=== PATIENT | female | born 2005 | race Caucasian/White ===

== ENCOUNTER 2024-01-06 16:54 | Emergency (ER) | payer BC ==
[2024-01-06] MEDS: Sodium Chloride 0.9% 2.5 ML Syringe FLUSH PRN (17:28)
[2024-01-06] MEDS: Ondansetron 4 MG/2 ML SDV IVPUSH ONE (17:28)
[2024-01-06] MEDS: Sodium Chloride 0.9% 1,000 ML IV ONE (17:28)
[2024-01-06] MEDS: Sodium Chloride 0.9% 10 ML Syringe FLUSH PRN (17:28)
[2024-01-06 17:30] LABS: BASOPHILS ABSOLUTE AUTO 0.03 K/uL (0.00-0.30); BASOPHILS PERCENT AUTO 0.2 % (0.0-1.0); EOSINOPHILS ABSOLUTE AUTO 0.01 K/uL (0.00-0.70); EOSINOPHILS PERCENT AUTO 0.1 % (0.0-5.0); HEMOGLOBIN 14.3 g/dL (12.0-16.0); IMMATURE GRAN ABSOLUTE AUTO 0.05 K/uL (0.00-0.05); IMMATURE GRAN PERCENT AUTO 0.4 % (0.0-0.4); LYMPHOCYTES ABSOLUTE AUTO 1.97 K/uL (2.00-8.80); LYMPHOCYTES PERCENT AUTO 14.8 % (50.0-65.0); MEAN CORPUSCULAR HEMOGLOBIN 30.8 pg (28.0-32.0); MEAN CORPUSCULAR HGB CONC 35.8 g/dL (32.0-36.0); MEAN CORPUSCULAR VOLUME 86.2 fL (83.0-99.0); MEAN PLATELET VOLUME 9.7 fL (9.4-12.3); MONOCYTES ABSOLUTE AUTO 0.55 K/uL (0.10-1.40); MONOCYTES PERCENT AUTO 4.1 % (2.0-10.0); NEUTROPHILS ABSOLUTE AUTO 10.69 K/uL (1.50-8.50); NEUTROPHILS PERCENT AUTO 80.4 % (35.0-45.0); PLATELET COUNT,PLT 372 K/uL (150-400); RED BLOOD CELL COUNT 4.64 M/uL (4.10-5.30)
[2024-01-06 18:23] LABS: A/G RATIO 1.1 (0.9-1.6); ALBUMIN 4.3 g/dL (3.4-5.0); BILIRUBIN TOTAL 0.7 mg/dL (0.2-1.0); CALCIUM 9.5 mg/dL (8.5-10.1); CARBON DIOXIDE,CO2 19.6 mmol/L (21.0-32.0); CREATININE 0.9 mg/dL (0.6-1.0); EST CRCL DRUG DOSING (CG) 83.17 mL/min; MAGNESIUM 1.8 mg/dL (1.8-2.4); POTASSIUM,K 3.7 mmol/L (3.5-5.1); PROTEIN TOTAL,TP 8.3 g/dL (6.4-8.2)
[2024-01-06 18:56] LABS: COLOR,URINE YELLOW; GLUCOSE,URINE NEGATIVE (NEGATIVE); KETONES,URINE >=80 mg/dL (NEGATIVE); LEUKOCYTE ESTERASE,URINE NEGATIVE (NEGATIVE); NITRITE,URINE NEGATIVE (NEGATIVE); OCCULT BLOOD,URINE NEGATIVE (NEGATIVE); PROTEIN,URINE TRACE mg/dL (NEGATIVE)
[2024-01-06 19:04] LABS: APPEARANCE,URINE SLT CLOUDY; BILIRUBIN,URINE SMALL (NEGATIVE); EPITHELIAL CELLS,URINE MANY (NONE-FEW); RBC,URINE 0-1 (0-2/HPF)
[2024-01-06 19:05] LABS: AMORPHOUS SEDIMENT,URINE FEW (NEGATIVE); BACTERIA,URINE 1+ (NEGATIVE); MUCUS,URINE FEW (NONE-MOD)
== END 2024-01-06 19:20 | disposition home or self-care (01) ==
LOC: MW.ED 16:54
DX: O21.9 Vomiting of pregnancy, unspecified (principal); Z79.51 Long term (current) use of inhaled steroids; Z79.899 Other long term (current) drug therapy; Z3A.00 Weeks of gestation of pregnancy not specified
CPT/HCPCS: 36415; 80053; 81001; 83690; 83735; 84702; 85025; 96361; 96374; 99284; J2405; J3490; J7030

== ENCOUNTER → 2024-06-15 | Emergency (ER) | payer BC ==
[~2024-06-15] MED LIST: Sodium Chloride 0.9% 10 ML Syringe FLUSH PRN
[2024-06-15] MEDS: Sodium Chloride 0.9% 1,000 ML IV ONE (04:03)
[2024-06-15] MEDS: diphenhydrAMINE 50 MG/ML SDV IVPUSH ONE (04:04)
[2024-06-15 04:05] LABS: BASOPHILS ABSOLUTE AUTO 0.02 K/uL (0.00-0.30); BASOPHILS PERCENT AUTO 0.2 % (0.0-1.0); EOSINOPHILS ABSOLUTE AUTO 0.03 K/uL (0.00-0.70); EOSINOPHILS PERCENT AUTO 0.2 % (0.0-5.0); HEMATOCRIT 30.5 % (37.0-47.0); HEMOGLOBIN 10.7 g/dL (12.0-16.0); IMMATURE GRAN ABSOLUTE AUTO 0.05 K/uL (0.00-0.05); IMMATURE GRAN PERCENT AUTO 0.4 % (0.0-0.4); LYMPHOCYTES ABSOLUTE AUTO 0.28 K/uL (2.00-8.80); LYMPHOCYTES PERCENT AUTO 2.1 % (50.0-65.0); MEAN CORPUSCULAR HEMOGLOBIN 31.7 pg (28.0-32.0); MEAN CORPUSCULAR HGB CONC 35.1 g/dL (32.0-36.0); MEAN CORPUSCULAR VOLUME 90.2 fL (83.0-99.0); MONOCYTES ABSOLUTE AUTO 0.71 K/uL (0.10-1.40); MONOCYTES PERCENT AUTO 5.4 % (2.0-10.0); NEUTROPHILS ABSOLUTE AUTO 11.99 K/uL (1.50-8.50); NEUTROPHILS PERCENT AUTO 91.7 % (35.0-45.0); PLATELET COUNT,PLT 292 K/uL (150-400); RED BLOOD CELL COUNT 3.38 M/uL (4.10-5.30); WHITE BLOOD CELL COUNT,WBC 13.08 K/uL (4.5-13.5)
[2024-06-15] MEDS: Acetaminophen 500 MG Tab PO ONE (04:06)
[2024-06-15 04:17] LABS: APPEARANCE,URINE SLT CLOUDY; BILIRUBIN,URINE NEGATIVE (NEGATIVE); COLOR,URINE YELLOW; GLUCOSE,URINE NEGATIVE (NEGATIVE); KETONES,URINE 40 mg/dL (NEGATIVE); LEUKOCYTE ESTERASE,URINE NEGATIVE (NEGATIVE); NITRITE,URINE NEGATIVE (NEGATIVE); OCCULT BLOOD,URINE NEGATIVE (NEGATIVE); PROTEIN,URINE NEGATIVE (NEGATIVE); UROBILINOGEN,URINE 0.2 EU/dL (<2.0)
[2024-06-15 04:28] LABS: A/G RATIO 0.8 (0.9-1.6); ALBUMIN 3.2 g/dL (3.4-5.0); BILIRUBIN TOTAL 0.5 mg/dL (0.2-1.0); C-REACTIVE PROTEIN 0.84 mg/dL (<0.3); CALCIUM 9.1 mg/dL (8.5-10.1); CARBON DIOXIDE,CO2 20.2 mmol/L (21.0-32.0); CREATININE 0.8 mg/dL (0.6-1.0); EST CRCL DRUG DOSING (CG) 93.56 mL/min; MAGNESIUM 1.7 mg/dL (1.8-2.4); POTASSIUM,K 3.6 mmol/L (3.5-5.1); PROTEIN TOTAL,TP 7.4 g/dL (6.4-8.2)
== END | disposition home or self-care (01) ==
LOC: MW.ED 03:37
DX: O98.513 Other viral diseases complicating pregnancy, third trimester (principal); U07.1 COVID-19; O99.893 Other specified diseases and conditions complicating puerperium; R51.9 Headache, unspecified; O99.283 Endocrine, nutritional and metabolic diseases complicating pregnancy, third trimester; E86.0 Dehydration; R82.4 Acetonuria; Z79.899 Other long term (current) drug therapy; Z3A.30 30 weeks gestation of pregnancy
CPT/HCPCS: 36415; 80053; 81003; 83735; 85025; 85652; 86140; 87428; 96361; 96374; 99284; A9270; J1200; J7030

== ENCOUNTER 2024-08-03 00:37 | Inpatient (IN) | payer BC ==
[2024-08-03] MEDS ORDERED: Sodium Chloride 0.9% 10 ML Syringe FLUSH PRN (01:16)
[2024-08-03] MEDS ORDERED: Misoprostol 100 MCG Tab RECTAL PRN (01:16)
[2024-08-03] MEDS ORDERED: Sodium Chloride 0.9% 2.5 ML Syringe FLUSH PRN (01:16)
[2024-08-03] MEDS ORDERED: Lidocaine 1% 50 ML MDV INJECT PRN (01:16)
[2024-08-03] MEDS ORDERED: Sodium Chloride 0.9% 20 ML SDV IV PRN (01:16)
[2024-08-03] MEDS ORDERED: Carboprost Tromethamine 250 MCG/1 mL Vial IM PRN (01:16)
[2024-08-03] MEDS ORDERED: Tranexamic Acid in NACL,ISO-OS 1,000 MG in Premix Bag 1 BAG IV PRN (01:16)
[2024-08-03] MEDS ORDERED: Water For Irrigation,Sterile 1,000 ML Container IRR PRN (01:16)
[2024-08-03] MEDS ORDERED: Methylergonovine 0.2 MG/1 ML Amp IM PRN (01:16)
[2024-08-03] MEDS ORDERED: Terbutaline 1 MG/ML SDV SUBCUT PRN (01:16)
[2024-08-03] MEDS ORDERED: Misoprostol 200 MCG Tab PO PRN (01:16)
[2024-08-03 01:34] LABS: HEMATOCRIT 32.4 % (37.0-47.0); HEMOGLOBIN 11.1 g/dL (12.0-16.0); MEAN CORPUSCULAR HEMOGLOBIN 31.3 pg (28.0-32.0); MEAN CORPUSCULAR HGB CONC 34.3 g/dL (32.0-36.0); MEAN CORPUSCULAR VOLUME 91.3 fL (83.0-99.0); MEAN PLATELET VOLUME 10.9 fL (9.4-12.3); PLATELET COUNT,PLT 340 K/uL (150-400); RED BLOOD CELL COUNT 3.55 M/uL (4.10-5.30); WHITE BLOOD CELL COUNT,WBC 12.18 K/uL (4.5-13.5)
[2024-08-03] MEDS: Misoprostol 25 MCG (1/4 of 100 MCG) Tab VAG PRN ×2 (02:04→15:10)
[2024-08-03] MEDS: Lactated Ringers 1,000 ML IV SCH (03:32)
[2024-08-03] MEDS ORDERED: ePHEDrine 50 MG/ML SDV IVPUSH PRN (07:41)
[2024-08-03] MEDS ORDERED: dexmedeTOMIDine HCl 200 MCG/2 ML SDV EPIDUR SCH (07:45)
[2024-08-03] MEDS: Butorphanol 2 MG/ML SDV IVPUSH PRN (17:21)
[2024-08-03] MEDS: Ondansetron 4 MG/2 ML SDV IVPUSH PRN (17:46)
[2024-08-03] MEDS: Oxytocin/0.9 % Sodium Chloride 30 UNIT/500 ML BAG IV SCH (19:42)
[2024-08-03] MEDS: Ropivacaine HCl/PF 400 MG in Premix Bag 1 BAG EPIDUR SCH (22:38)
[2024-08-03] MEDS: Phenylephrine HCl In 0.9% NaCl 1 MG/10 ML Syringe IVPUSH PRN (23:13)
[2024-08-04] MEDS ORDERED: fentaNYL 100 MCG/2 ML SDV ONE (08:05)
[2024-08-04] MEDS: Oxytocin/0.9 % Sodium Chloride 30 UNIT/500 ML BAG IV SCH (09:33)
[2024-08-04] MEDS ORDERED: Misoprostol 200 MCG Tab PO PRN (09:59)
[2024-08-04] MEDS: Lanolin 100% Cream 7 GM Tube TOP PRN (10:24)
[2024-08-04] MEDS: Witch Hazel Medicated Pads 40/Jar TOP PRN (10:24)
[2024-08-04] MEDS: Benzocaine/Menthol 20%-0.5% Spray 78 GM Cannister TOP PRN (10:24)
[2024-08-04] MEDS: Ibuprofen 800 MG Tab PO PRN (10:25)
[2024-08-04] MEDS: Acetaminophen 500 MG Tab PO PRN (10:25)
[2024-08-04] MEDS: Docusate Sodium 100 MG Cap PO PRN (10:25)
[2024-08-04 11:18] LABS: PH,UMBILICAL ARTERIAL 7.198 (7.18-7.38)
[2024-08-04 11:19] LABS: PH,UMBILICAL VENOUS 7.315 (7.25-7.45)
[2024-08-05 06:00] LABS: HEMATOCRIT 27.4 % (37.0-47.0); HEMOGLOBIN 9.3 g/dL (12.0-16.0)
== END 2024-08-05 15:00 | disposition home or self-care (01) | DRG 560 ==
LOC: MW.OB 00:37 → OBSVTOIN 08-04 09:59 → MW.OB 08-04 12:51
PROVIDERS: ADMIT Obstetrics & Gynecology; ATTEND Obstetrics & Gynecology
PROC: 10E0XZZ Delivery of Products of Conception, External Approach (ICD-10-PCS; principal; 2024-08-04)
PROC: 10H07YZ Insertion of Other Device into Products of Conception, Via Natural or Artificial Opening (ICD-10-PCS; 2024-08-04)
PROC: 10907ZC Drainage of Amniotic Fluid, Therapeutic from Products of Conception, Via Natural or Artificial Opening (ICD-10-PCS; 2024-08-04)
PROC: 3E033VJ Introduction of Other Hormone into Peripheral Vein, Percutaneous Approach (ICD-10-PCS; 2024-08-04)
PROC: 3E0R3BZ Introduction of Anesthetic Agent into Spinal Canal, Percutaneous Approach (ICD-10-PCS; 2024-08-04)
PROC: 00HU33Z Insertion of Infusion Device into Spinal Canal, Percutaneous Approach (ICD-10-PCS; 2024-08-04)
DX: O36.5930 Maternal care for other known or suspected poor fetal growth, third trimester, not applicable or unspecified (principal); Z37.0 Single live birth; J45.909 Unspecified asthma, uncomplicated; O99.52 Diseases of the respiratory system complicating childbirth; O26.893 Other specified pregnancy related conditions, third trimester; O69.81X0 Labor and delivery complicated by cord around neck, without compression, not applicable or unspecified; O70.0 First degree perineal laceration during delivery; O43.123 Velamentous insertion of umbilical cord, third trimester; Z67.91 Unspecified blood type, Rh negative; Z3A.37 37 weeks gestation of pregnancy
CPT/HCPCS: 01967; 36415; 51702; 59025; 59409; 82803; 85014; 85018; 85027; 85460; 86592; 86850; 86900; 86901; A9270-GY; J0595; J2371; J2405; J2590; J2791; J2795; J3010; J7120

== ENCOUNTER 2025-01-07 21:42 | Emergency (ER) | payer BC ==
[2025-01-07] MEDS: predniSONE 20 MG Tab PO ONE (23:17)
[2025-01-07] MEDS: Albuterol/Ipratropium 3.0-0.5 MG/3 ML Neb Soln NEB ONE (23:17)
== END 2025-01-08 00:17 | disposition home or self-care (01) ==
LOC: MW.ED 21:42
DX: J45.901 Unspecified asthma with (acute) exacerbation (principal); Z79.899 Other long term (current) drug therapy
CPT/HCPCS: 99284; A9270; J7620; 99283

== ENCOUNTER 2025-07-09 18:28 | Emergency (ER) | payer BC, MEDICAID ==
[2025-07-09 18:57] LABS: GLUCOSE,URINE NEGATIVE (NEGATIVE); OCCULT BLOOD,URINE NEGATIVE (NEGATIVE)
[2025-07-09 19:04] LABS: APPEARANCE,URINE HAZY; EPITHELIAL CELLS,URINE MODERATE (NONE-FEW)
[2025-07-09] MEDS: Ondansetron 4 MG/2 ML SDV IVPUSH ONE (19:04)
[2025-07-09 19:25] LABS: BASOPHILS ABSOLUTE AUTO 0.02 K/uL (0.00-0.20); BASOPHILS PERCENT AUTO 0.1 % (0.0-1.0); EOSINOPHILS ABSOLUTE AUTO 0.00 K/uL (0.00-0.45); EOSINOPHILS PERCENT AUTO 0.0 % (0.0-6.0); IMMATURE GRAN ABSOLUTE AUTO 0.06 K/uL (0.00-0.05); IMMATURE GRAN PERCENT AUTO 0.4 % (0.0-0.4); LYMPHOCYTES ABSOLUTE AUTO 1.13 K/uL (1.00-4.80); LYMPHOCYTES PERCENT AUTO 6.8 % (24.0-44.0); MEAN PLATELET VOLUME 10.1 fL (9.4-12.3); MONOCYTES ABSOLUTE AUTO 0.36 K/uL (0.00-0.80); MONOCYTES PERCENT AUTO 2.2 % (0.0-8.0); NEUTROPHILS ABSOLUTE AUTO 14.95 K/uL (1.80-7.70); NEUTROPHILS PERCENT AUTO 90.5 % (41.0-71.0); NRBC ABSOLUTE 0.00 K/uL (0.00-0.02); NRBC PERCENT 0.0 /100WBC (0.0-0.2); PLATELET COUNT,PLT 353 K/uL (150-400); RED BLOOD CELL COUNT 4.58 M/uL (4.10-5.30); WHITE BLOOD CELL COUNT,WBC 16.52 K/uL (3.9-11.3)
[2025-07-09 19:54] LABS: A/G RATIO 1.1 (0.9-1.6); ALANINE AMINOTRANSFERASE,ALT 15 IU/L (14-63); ASPARTATE AMNIOTRANSFERASE,AST 15 IU/L (15-37); BILIRUBIN TOTAL 0.5 mg/dL (0.2-1.0); BLOOD UREA NITROGEN,BUN 11 mg/dL (7.0-18.0); CARBON DIOXIDE,CO2 16.4 mmol/L (21.0-32.0); CHLORIDE,CL 104 mmol/L (98-107); CREATININE 0.9 mg/dL (0.6-1.0); GLUCOSE RANDOM 116 mg/dL (74-106); POTASSIUM,K 3.5 mmol/L (3.5-5.1); PROTEIN TOTAL,TP 7.8 g/dL (6.4-8.2); SODIUM,NA 138 mmol/L (136-145)
[2025-07-09 19:55] LABS: ESTIMATED GFR 94 mL/min (>60)
== END 2025-07-09 20:33 | disposition home or self-care (01) ==
LOC: MW.ED 18:28
DX: O21.9 Vomiting of pregnancy, unspecified (principal); E86.0 Dehydration; J45.909 Unspecified asthma, uncomplicated; Z75.3 Unavailability and inaccessibility of health-care facilities; Z79.51 Long term (current) use of inhaled steroids; Z79.899 Other long term (current) drug therapy; Z3A.09 9 weeks gestation of pregnancy
CPT/HCPCS: 36415; 80053; 81001; 85025; 96361; 96374; 99284; J2405; J7030; 99283